=== PATIENT | female | born 1975 | race Caucasian/White ===

== ENCOUNTER 2022-11-15 19:16 | Inpatient (IN) | payer OTHER, SELFPAY ==
[2022-11-15] MEDS ORDERED: Morphine 4 MG/ML VIAL ONE (19:34)
[2022-11-15] MEDS ORDERED: Ketorolac Tromethamine 30 MG/ML VIAL ONE (19:34)
[2022-11-15] MEDS ORDERED: Ondansetron PF 4 MG/2 ML Vial IVP PRN (19:42)
[2022-11-15] MEDS ORDERED: Ketorolac Tromethamine 30 MG/ML VIAL IVP SCH (19:45)
[2022-11-15] MEDS ORDERED: traMADol HCl 50 MG TAB PO PRN (19:45)
[2022-11-15 22:26] VITALS: BMI 34.7
[2022-11-15] MEDS: Senokot S 8.6-50 MG TAB PO SCH (22:41)
[2022-11-15] MEDS: Famotidine 20 MG TAB PO SCH (22:41)
[2022-11-15] MEDS: Morphine 4 MG/ML VIAL SLOW IVP PRN (22:41)
[2022-11-15] MEDS: Cyclobenzaprine 10 MG TAB PO PRN (22:41)
[2022-11-15] MEDS: Gabapentin 100 MG CAP PO SCH (22:42)
[2022-11-15] MEDS: Sodium Chloride 0.9% 1,000 ML IV SCH (22:49)
[2022-11-15] MEDS: traMADol HCl 50 MG TAB PO SCH (23:42)
[2022-11-15] MEDS: Ketorolac Tromethamine 30 MG/ML VIAL IVP SCH (23:42)
[2022-11-15] MEDS: Acetaminophen 500 MG TAB PO SCH (23:43)
[2022-11-16] MEDS: Morphine 4 MG/ML VIAL SLOW IVP PRN ×3 (03:42→20:08)
[2022-11-16] MEDS: Acetaminophen 500 MG TAB PO SCH ×4 (06:10→23:22)
[2022-11-16] MEDS: Ketorolac Tromethamine 30 MG/ML VIAL IVP SCH ×4 (06:10→23:21)
[2022-11-16] MEDS: traMADol HCl 50 MG TAB PO SCH ×4 (06:11→23:21)
[2022-11-16] MEDS: Sodium Chloride 0.9% 1,000 ML IV SCH (06:17)
[2022-11-16 07:04] LABS: #Basophils 0.1 thou/uL (0.0-0.2); #Eosinphils 0.2 thou/uL (0.0-0.7); #Lymphocytes 3.1 thou/uL (1.20-3.40); #Monocytes 0.8 thou/uL (0.11-0.59); #Neutrophils 7.4 thou/uL (1.40-6.50); %Basophils 0.6 % (0.0-1.0); %Eosinophils 1.4 % (0.0-10.0); %Lymphocytes 26.9 % (21.0-51.0); %Monocytes 6.8 % (0.0-10.0); %Neutrophils 64.3 % (42.0-75.0); Hemoglobin 14.4 g/dL (12.0-16.0); Mean Corpuscular HGB CONC 32.4 g/dL (32.0-36.0); Mean Corpuscular Hemoglobin 31.8 pg (27.0-31.0); Mean Platelet Volume 8.4 fL (7.4-10.4); Platelet Count 272 10x3/uL (130-400); RBC Distribution Width 12.4 % (11.5-14.5); Red Blood Cell (RBC) Count 4.53 mill/uL (4.20-5.40); White Blood Cell (WBC) Count 11.6 10x3/uL (4.8-10.8)
[2022-11-16 07:18] LABS: Phosphorus 2.4 mg/dL (2.3-4.7)
[2022-11-16 07:19] LABS: Anion Gap 14 mmol/L (10-20); BUN (Urea Nitrogen) 12 mg/dL (7.0-18.7); Calc. Creatinine Clearance 132 mL/min (70-130); Calcium 8.7 mg/dL (7.8-10.44); Carbon Dioxide 22 mmol/L (22-29); Chloride 105 mmol/L (98-107); Estimated GFR 96; Glucose 82 mg/dL (70-105); Magnesium 2.1 mg/dL (1.6-2.6); Potassium 3.8 mmol/L (3.5-5.1); Sodium 137 mmol/L (136-145)
[2022-11-16 07:25] LABS: INR-International Normal Ratio 0.9; PTT 27.2 sec (22.9-36.1)
[2022-11-16 07:35] LABS: SARS-CoV-2 NAA Rapid Test Not Detected (NotDetected)
[2022-11-16] MEDS: Gabapentin 100 MG CAP PO SCH (09:00)
[2022-11-16] MEDS: Famotidine 20 MG TAB PO SCH ×2 (09:00→20:09)
[2022-11-16] MEDS: Polyethylene Glycol 3350 17 GM Packet PO SCH (09:00)
[2022-11-16] MEDS: Senokot S 8.6-50 MG TAB PO SCH ×2 (09:00→20:09)
[2022-11-16] MEDS ORDERED: Gabapentin 100 MG CAP PO SCH (09:41)
[2022-11-16] MEDS ORDERED: Gabapentin 300 MG CAP PO SCH (10:00)
[2022-11-16] MEDS: Gabapentin 300 MG CAP PO SCH ×2 (13:42→20:09)
[2022-11-16] MEDS: Lithium Carbonate ER 450 mg Tablet PO SCH (20:09)
[2022-11-16] MEDS: risperiDONE 1 MG TAB PO SCH (20:09)
[2022-11-17] MEDS: Ketorolac Tromethamine 30 MG/ML VIAL IVP SCH ×3 (05:21→17:21)
[2022-11-17] MEDS: traMADol HCl 50 MG TAB PO SCH ×2 (05:22→12:12)
[2022-11-17] MEDS: Acetaminophen 500 MG TAB PO SCH ×2 (05:22→12:11)
[2022-11-17] MEDS: Polyethylene Glycol 3350 17 GM Packet PO SCH (09:21)
[2022-11-17] MEDS: Gabapentin 100 MG CAP PO SCH ×3 (09:22→21:27)
[2022-11-17] MEDS: Lithium Carbonate ER 450 mg Tablet PO SCH ×2 (09:22→21:28)
[2022-11-17] MEDS: Senokot S 8.6-50 MG TAB PO SCH ×2 (09:23→21:29)
[2022-11-17] MEDS: Famotidine 20 MG TAB PO SCH ×2 (09:23→21:27)
[2022-11-17] MEDS: FLUoxetine HCl 20 MG CAP PO SCH (09:23)
[2022-11-17] MEDS: Cyclobenzaprine 10 MG TAB PO PRN (15:33)
[2022-11-17] MEDS: Acetaminophen/Codeine 30-300mg Tablet PO SCH (17:21)
[2022-11-17] MEDS: risperiDONE 1 MG TAB PO SCH (21:29)
[2022-11-17] MEDS: traMADol HCl 50 MG TAB PO PRN (21:41)
[2022-11-18] MEDS: Ketorolac Tromethamine 30 MG/ML VIAL IVP SCH (00:20)
[2022-11-18] MEDS: Acetaminophen/Codeine 30-300mg Tablet PO SCH ×4 (00:21→17:26)
[2022-11-18] MEDS: Cyclobenzaprine 10 MG TAB PO PRN ×3 (00:21→15:36)
[2022-11-18] MEDS: traMADol HCl 50 MG TAB PO PRN ×2 (05:29→14:38)
[2022-11-18] MEDS: Lithium Carbonate ER 450 mg Tablet PO SCH (08:48)
[2022-11-18] MEDS: Famotidine 20 MG TAB PO SCH (08:48)
[2022-11-18] MEDS: FLUoxetine HCl 20 MG CAP PO SCH (08:48)
[2022-11-18] MEDS: Polyethylene Glycol 3350 17 GM Packet PO SCH (08:49)
[2022-11-18] MEDS: Gabapentin 100 MG CAP PO SCH ×2 (08:49→14:39)
[2022-11-18] MEDS: Senokot S 8.6-50 MG TAB PO SCH (08:49)
[2022-11-18 15:54] VITALS: BP 123/83; TEMP 97.9
== END 2022-11-18 17:09 | disposition home or self-care (01) | DRG 200 ==
LOC: ERS 19:16 → SURG A 19:45
PROVIDERS: ADMIT Surgery; ATTEND Surgery
PROC: 0W9B30Z Drainage of Left Pleural Cavity with Drainage Device, Percutaneous Approach (ICD-10-PCS; principal; 2022-11-15)
DX: S27.2XXA Traumatic hemopneumothorax, initial encounter (principal); S22.42XA Multiple fractures of ribs, left side, initial encounter for closed fracture; Z20.822 Contact with and (suspected) exposure to COVID-19; W01.0XXA Fall on same level from slipping, tripping and stumbling without subsequent striking against object, initial encounter; G43.909 Migraine, unspecified, not intractable, without status migrainosus; F41.9 Anxiety disorder, unspecified; F32.A Depression, unspecified; Z79.899 Other long term (current) drug therapy; Z90.49 Acquired absence of other specified parts of digestive tract; Z98.51 Tubal ligation status
CPT/HCPCS: 36415; 71045; 80048; 83735; 84100; 85025; 85610; 85730; 93005; 94760; 96374; 96375; G0390; J1650; J1885; J2270; J2405; J7050; U0002

== ENCOUNTER 2022-11-30 15:55 | Outpatient (CLI) | payer SELFPAY | END 2022-11-30 15:56 | disposition home or self-care (01) | LOC: RAD 15:55 | PROVIDERS: ATTEND Surgery | DX: J93.9 Pneumothorax, unspecified (principal) | CPT/HCPCS: 71046 ==